=== PATIENT | female | born 1990 | race Caucasian/White ===

== ENCOUNTER 2017-03-22 12:15 | Emergency (ER) | payer SELFPAY ==
[~2017-03-22] VITALS: Ht 154.9 cm; Wt 61.1 kg
[2017-03-22 12:32] VITALS: BP 117/59; PULSE 94; RESP 16; TEMP 97.9; O2SAT 99
--- NOTE | 2017-03-22 13:11 | PD ---
HPI Chief Complaint: Edema Time Seen by Provider: 12:46 Travel History International Travel<30 days: No Contact w/Intl Traveler<30days: No Traveled to known affect area: No History of Present Illness HPI The patient is a 26-year-old female who presents to the emergency department for bilateral lower extremity edema. The patient has a 3 to four- week history of bilateral lower extremity edema. The patient was seen at urgent care and advised to wear HAILEY hose. The patient has been wearing HAILEY hose , however, she now notes the swelling is over the anterior aspect of the thighs bilaterally and is painful. She denies any history of previous DVT or pulmonary embolism. The patient does state that the edema is better in the morning after her legs have been supine, however, does worsen throughout the day despite wearing HAILEY hose. She also notes a small amount of bruising over the anterior aspect of her legs where she bumped him on the ground. The patient denies any chest pain, shortness of breath, or known history of underlying kidney/liver disease. She denies any chronic medical problems. [facility] [place] Past Medical History Medical History: Denies Significant Hx ?: Not LMP: 03/19/17 Past Surgical History Surgical History: No Previous Surgery Social History Alcohol Use: Yes (RARE) Tobacco Use: No Substance Use: No Allergies-Medications (Allergen,Severity, Reaction): Coded Allergies: No Known Allergies (Verified Allergy, Unknown, 03/22/17) Reported Meds & Prescriptions Reported Meds & Active Scripts Active No Active Prescriptions or Reported Medications Review of Systems Except as stated in HPI: all other systems reviewed are Neg General / Constitutional: No: Fever Cardiovascular: No: Chest Pain or Discomfort Respiratory: No: Shortness of Breath Gastrointestinal: No: Nausea, Vomiting, Abdominal Pain Musculoskeletal: Positive: Edema, Pain Neurologic: No: Dizziness Physical Exam Narrative GENERAL: Awake, alert, nontoxic-appearing 26-year-old female who appears her stated age and is in no acute respiratory distress. SKIN: Focused skin assessment warm/dry. Petechiae noted over the anterior aspect of the tibia/fibular bilaterally. HEAD: Atraumatic. Normocephalic. EYES: Pupils equal and round. No scleral icterus. No injection or drainage. ENT: No nasal bleeding or discharge. Mucous membranes pink and moist. NECK: Trachea midline. No JVD. CARDIOVASCULAR: Regular rate and rhythm. No murmur appreciated. RESPIRATORY: No accessory muscle use. Clear to auscultation. Breath sounds equal bilaterally. GASTROINTESTINAL: Abdomen soft, non-tender, nondistended. MUSCULOSKELETAL: Bilateral lower extension any pain edema from the mid thigh inferiorly. Clubbing of the nails noted. Positive dorsalis pedal pulses bilateral. No obvious edema of the hands. NEUROLOGICAL: Awake and alert. No obvious cranial nerve deficits. Motor grossly within normal limits. Normal speech. PSYCHIATRIC: Appropriate mood and affect; insight and judgment normal. Data Data Last Documented VS Vital Signs Date Time Temp Pulse Resp B/P (MAP) Pulse Ox O2 Delivery O2 Flow Rate FiO2 03/22/17 14:29 99 Room Air 03/22/17 13:40 90 18 117/65 (82) 03/22/17 12:32 97.9 Orders Orders Complete Blood Count With Diff (03/22/17 12:52) Comprehensive Metabolic Panel (03/22/17 12:52) Act Partial Throm Time (Ptt) (03/22/17 12:52) Prothrombin Time / Inr (Pt) (03/22/17 12:52) Chest, Single Ap (03/22/17 ) Us Leg Venous Doppler Bilat (03/22/17 ) Urinalysis - C+S If Indicated (03/22/17 12:52) Ed Urine Pregnancytest Poc (03/22/17 12:52) Free Thyroxine (T4) (03/22/17 12:55) Free T3 (03/22/17 12:55) Urine Culture (03/22/17 13:00) Thyroid Stimulating Hormone (03/22/17 13:10) Labs Laboratory Tests Test 03/22/17 13:00 03/22/17 13:10 Urine Collection Type CLEAN CATCH Urine Color YELLOW Urine Turbidity CLOUDY Urine pH 5.5 Urine Specific Eleele 1.026 Urine Protein NEG mg/dL Urine Glucose (UA) NEG mg/dL Urine Ketones TRACE mg/dL Urine Occult Blood SMALL Urine Nitrite NEG Urine Bilirubin NEG Urine Leukocyte Esterase SMALL Urine RBC 0-3 /hpf Urine WBC 9-14 /hpf Urine Squamous Epithelial Cells 6-8 /hpf Urine Amorphous Sediment FEW Microscopic Urinalysis Comment CULTURE INDICATED White Blood Count 2.7 TH/MM3 Red Blood Count 3.04 MIL/MM3 Hemoglobin 9.8 GM/DL Hematocrit 30.2 % Mean Corpuscular Volume 99.2 FL Mean Corpuscular Hemoglobin 32.3 PG Mean Corpuscular Hemoglobin Concent 32.5 % Red Cell Distribution Width 21.6 % Platelet Count 559 TH/MM3 Mean Platelet Volume 5.9 FL Neutrophils (%) (Auto) 70.8 % Lymphocytes (%) (Auto) 17.7 % Monocytes (%) (Auto) 8.0 % Eosinophils (%) (Auto) 3.1 % Basophils (%) (Auto) 0.4 % Neutrophils # (Auto) 1.9 TH/MM3 Lymphocytes # (Auto) 0.5 TH/MM3 Monocytes # (Auto) 0.2 TH/MM3 Eosinophils # (Auto) 0.1 TH/MM3 Basophils # (Auto) 0.0 TH/MM3 CBC Comment DIFF FINAL Differential Comment Prothrombin Time 10.4 SEC Prothromb Time International Ratio 0.9 RATIO Activated Partial Thromboplast Time 26.8 SEC Blood Urea Nitrogen 17 MG/DL Creatinine 0.47 MG/DL Random Glucose 77 MG/DL Total Protein 5.0 GM/DL Albumin 1.6 GM/DL Calcium Level 7.7 MG/DL Alkaline Phosphatase 49 U/L Aspartate Amino Transf (AST/SGOT) 12 U/L Alanine Aminotransferase (ALT/SGPT) 14 U/L Total Bilirubin 0.3 MG/DL Sodium Level 140 MEQ/L Potassium Level 3.6 MEQ/L Chloride Level 107 MEQ/L Carbon Dioxide Level 28.2 MEQ/L Anion Gap 5 MEQ/L Estimat Glomerular Filtration Rate 158 ML/MIN Thyroid Stimulating Hormone 3rd Gen 2.050 uIU/ML MDM Medical Decision Making Medical Screen Exam Complete: Yes Emergency Medical Condition: Yes Medical Record Reviewed: Yes Interpretation(s) Chest x-ray reveals no acute cardiopulmonary disease Ultrasound reveals no sonographic evidence of DVT. Laboratory Tests Test 03/22/17 13:00 03/22/17 13:10 Urine Collection Type CLEAN CATCH Urine Color YELLOW Urine Turbidity CLOUDY Urine pH 5.5 Urine Specific Eleele 1.026 Urine Protein NEG mg/dL Urine Glucose (UA) NEG mg/dL Urine Ketones TRACE mg/dL Urine Occult Blood SMALL Urine Nitrite NEG Urine Bilirubin NEG Urine Leukocyte Esterase SMALL Urine RBC 0-3 /hpf Urine WBC 9-14 /hpf Urine Squamous Epithelial Cells 6-8 /hpf Urine Amorphous Sediment FEW Microscopic Urinalysis Comment CULTURE INDICATED White Blood Count 2.7 TH/MM3 Red Blood Count 3.04 MIL/MM3 Hemoglobin 9.8 GM/DL Hematocrit 30.2 % Mean Corpuscular Volume 99.2 FL Mean Corpuscular Hemoglobin 32.3 PG Mean Corpuscular Hemoglobin Concent 32.5 % Red Cell Distribution Width 21.6 % Platelet Count 559 TH/MM3 Mean Platelet Volume 5.9 FL Neutrophils (%) (Auto) 70.8 % Lymphocytes (%) (Auto) 17.7 % Monocytes (%) (Auto) 8.0 % Eosinophils (%) (Auto) 3.1 % Basophils (%) (Auto) 0.4 % Neutrophils # (Auto) 1.9 TH/MM3 Lymphocytes # (Auto) 0.5 TH/MM3 Monocytes # (Auto) 0.2 TH/MM3 Eosinophils # (Auto) 0.1 TH/MM3 Basophils # (Auto) 0.0 TH/MM3 CBC Comment DIFF FINAL Differential Comment Prothrombin Time 10.4 SEC Prothromb Time International Ratio 0.9 RATIO Activated Partial Thromboplast Time 26.8 SEC Blood Urea Nitrogen 17 MG/DL Creatinine 0.47 MG/DL Random Glucose 77 MG/DL Total Protein 5.0 GM/DL Albumin 1.6 GM/DL Calcium Level 7.7 MG/DL Alkaline Phosphatase 49 U/L Aspartate Amino Transf (AST/SGOT) 12 U/L Alanine Aminotransferase (ALT/SGPT) 14 U/L Total Bilirubin 0.3 MG/DL Sodium Level 140 MEQ/L Potassium Level 3.6 MEQ/L Chloride Level 107 MEQ/L Carbon Dioxide Level 28.2 MEQ/L Anion Gap 5 MEQ/L Estimat Glomerular Filtration Rate 158 ML/MIN Thyroid Stimulating Hormone 3rd Gen 2.050 uIU/ML Differential Diagnosis Differential diagnosis includes chronic venous stasis, lymphedema, dependent edema, hypoalbuminemia, hyponatremia, hypothyroidism, hyperthyroidism, nephritic syndrome, nephrotic syndrome, CHF, cardiomyopathy. Narrative Course IV was established, labs are drawn and sent, and the patient was placed on cardiac telemetry monitoring and continuous pulse oximetry monitoring. Chest x- ray was obtained. Ultrasound lower extremities bilaterally was ordered. TSH, free T4, and free T3 were sent to lab. The patient's chest x-rays unremarkable. Albumin is low 1.6 and total protein is low 5.0. CBC does reveal leukopenia and anemia. UA does reveal UTI, no evidence of gross proteinuria. TSH is unremarkable. Ultrasound is negative for DVT. The patient is stable for outpatient follow-up. UA does reveal UTI, therefore, patient will be treated with Bactrim. Diagnosis Primary Impression: Dependent edema Additional Impressions: Hypoalbuminemia UTI (urinary tract infection) Qualified Codes: N39.0 - Urinary tract infection, site not specified Referrals: [facility] call for appointment Patient Instructions: General Instructions Additional Instructions: Please provide the patient a copy of her labs at discharge. Please provide a patient a copy of her ultrasound results and chest x-ray results at discharge. Follow-up at the area clinic. Return if symptoms worsen or progress. Med/Other Pt SpecificInfo: Prescription(s) given Scripts Sulfamethoxazole-Trimethoprim (Bactrim DS) 800-160 Mg Tab 1 TAB PO BID for Infection, #6 TAB 0 Refills Prov: Rojelio Dumont MD 03/22/17 Disposition: 01 DISCHARGE HOME Condition: Stable Rojelio Dumont MD Mar 22, 2017 13:11
[2017-03-22 13:12] LABS: BLOOD, URINE SMALL (NEG); GLUCOSE,URINE NEG (NEG); KETONE, URINE TRACE mg/dL (NEG); NITRITE,URINE NEG (NEG); PH, URINE 5.5 (5.0-8.5)
[2017-03-22 13:13] LABS: METHOD OF COLLECTION CLEAN CATCH; URINE COLOR YELLOW (YELLW/STRAW)
[2017-03-22 13:17] LABS: AUTOMATED NEUTROPHIL # 1.9 TH/MM3 (1.8-7.7); BASOPHIL % 0.4 % (0.0-2.0); EOSINOPHIL # 0.1 TH/MM3 (0-0.4); EOSINOPHIL % 3.1 % (0.0-4.0); HEMATOCRIT 30.2 % (35.0-46.0); LYMPH % 17.7 % (9.0-44.0); LYMPHOCYTE # 0.5 TH/MM3 (1.0-4.8); MEAN CELL VOLUME 99.2 FL (80.0-100.0); MEAN CORPUSCULAR HEMOGLOBIN 32.3 PG (27.0-34.0); MEAN CORPUSCULAR HGB CONC 32.5 % (32.0-36.0); NEUT % 70.8 % (16.0-70.0); PLATELET COUNT 559 TH/MM3 (150-450); RED BLOOD COUNT 3.04 MIL/MM3 (4.00-5.30); RED CELL DISTRIBUTION WIDTH 21.6 % (11.6-17.2); WHITE BLOOD COUNT 2.7 TH/MM3 (4.0-11.0)
[2017-03-22 13:18] LABS: HEMO FLAGS DIFF FINAL
[2017-03-22 13:23] LABS: COMMENT (UR) CULTURE INDICATED; CULTURE IF INDICATED CULTURE INDICATED; RBC, URINE 0-3 /hpf (0-3)
[2017-03-22 13:28] LABS: CHLORIDE 107 MEQ/L (98-107); POTASSIUM 3.6 MEQ/L (3.5-5.1); SODIUM (NA) 140 MEQ/L (136-145)
--- NOTE | 2017-03-22 13:29 | RADRPT ---
EXAM DATE/TIME: 03/22/2017 13:06 [facility] COMPARISON: No previous studies available for comparison. INDICATIONS : Lower extremity edema & itching. MEDICAL HISTORY : None. SURGICAL HISTORY : None. ENCOUNTER: Initial ACUITY: 1 week PAIN SCORE: 0/10 LOCATION: Bilateral chest FINDINGS: A single view of the chest demonstrates the lungs to be symmetrically aerated without evidence of mas s, infiltrate or effusion. The cardiomediastinal contours are unremarkable. Osseous structures are intact. CONCLUSION: 1. No acute cardiopulmonary disease. Yefri Pablo MD on March 22, 2017 at 13:27 Board Certified Radiologist. This report was verified electronically.
[2017-03-22 13:32] LABS: ANION GAP 5 MEQ/L (5-15); BICARBONATE 28.2 MEQ/L (21.0-32.0); BLOOD UREA NITROGEN 17 MG/DL (7-18)
[2017-03-22 13:33] LABS: APTT (PATIENT) 26.8 SEC (24.3-30.1); INTERNATIONAL NORMALIZED RATIO 0.9 RATIO; PROTHROMBIN TIME - PATIENT 10.4 SEC (9.8-11.6)
[2017-03-22 13:35] LABS: ALT (GPT) 14 U/L (10-53); AST (GOT) 12 U/L (15-37); GLOMERULAR FILTRATION RATE 158 ML/MIN (>89)
[2017-03-22 13:36] LABS: TOTAL BILIRUBIN ADULT 0.3 MG/DL (0.2-1.0)
[2017-03-22 13:38] LABS: ALKALINE PHOSPHATASE 49 U/L (45-117)
[2017-03-22 13:40] VITALS: BP 117/65; PULSE 90; RESP 18; O2SAT 98
--- NOTE | 2017-03-22 13:50 | RADRPT ---
EXAM DATE/TIME: 03/22/2017 13:15 [facility] COMPARISON: No previous studies available for comparison. INDICATIONS : Bilateral lower extremity edema. MEDICAL HISTORY : IBS. Crohn's disease. SURGICAL HISTORY : Colonoscopy. ENCOUNTER: Initial ACUITY: 3 weeks PAIN SCORE: 0/10 LOCATION: Bilateral legs. TECHNIQUE: Venous ultrasound of the left and right leg was performed from the inguinal ligament to the proximal calf. Real-time, color Doppler and spectral tracing, compression and augmentation techniques were us ed. FINDINGS: RIGHT LEG: There is normal compressibility of the deep venous system from the inguinal region to the proximal ca lf. No echogenic clot is seen in the lumen of the common femoral, femoral, popliteal, and posterior tibial veins. There is a normal response of the venous system to proximal and distal augmentation an d respiration. LEFT LEG: There is normal compressibility of the deep venous system from the inguinal region to the proximal ca lf. No echogenic clot is seen in the lumen of the common femoral, femoral, popliteal, and posterior tibial veins. There is a normal response of the venous system to proximal and distal augmentation an d respiration. CONCLUSION: 1. No sonographic evidence for lower extremity DVT. Yefri Pablo MD on March 22, 2017 at 13:48 Board Certified Radiologist. This report was verified electronically.
[2017-03-22] MEDS ORDERED: BACT800T5 PO (14:34)
[2017-03-22 16:09] LABS: FREE T3 1.27 PG/ML (2.18-3.98); FREE T4 0.95 NG/DL (0.76-1.46)
== END 2017-03-22 14:53 | disposition home or self-care (01) ==
LOC: PHED 12:15
DX: R60.0 Localized edema (principal); E88.09 Other disorders of plasma-protein metabolism, not elsewhere classified; N39.0 Urinary tract infection, site not specified
CPT/HCPCS: 71010; 80053; 81001; 84439; 84443; 84481; 84703; 85025; 85610; 85730; 87086; 93970